=== PATIENT | female | born 1985 | race Caucasian/White ===

== ENCOUNTER 2017-03-18 20:37 | Emergency (ER) | payer BC ==
[~2017-03-18] VITALS: Ht 160 cm; Wt 62.7 kg
[2017-03-18] MEDS ORDERED: ALUMINUM/MAGNESIUM SUSP 30 ML UDC PO STA (20:54)
[2017-03-18] MEDS ORDERED: PANTOprazole SOD 40 MG TAB PO STA (20:54)
--- NOTE | 2017-03-18 21:10 | DIAGNOSTIC IMAGING REPORT ---
CHEST ONE VIEW PORTABLE CLINICAL HISTORY: 31 years-old Female presenting with EVALUATE RESPIRATORY DISTRESS.DYSPNEA. TECHNIQUE: Portable upright AP view of the chest was obtained. COMPARISON: None. FINDINGS: Cardiomediastinal silhouette normal. Lungs and pleural spaces clear. Osseous structures and upper abdomen normal. IMPRESSION: 1. No acute cardiopulmonary disease. Electronically signed by: Donte Walker M.D. 03/18/2017 9:09 PM Dictated Date/Time: 03/18/2017 9:09 PM
[2017-03-18 21:17] LABS: BASO % 0.6 %; BASO ABS # 0.03 K/uL (0-0.2); COMPLETE YES; EOS % 2.8 %; IG% 0.2 %; LYMPH % 13.4 %; LYMPH ABS # 0.71 K/uL (1.2-3.4); MEAN CELL VOLUME 84.6 fL (80-100); MEAN CORPUSCULAR HEMOGLOBIN 30.6 pg (25-34); MEAN CORPUSCULAR HGB CONC 36.2 g/dl (32-36); MEAN PLATELET VOLUME 10.1 fL (7.4-10.4); MONO % 9.8 %; NEUT % 73.2 %; PLATELET COUNT 265 K/uL (130-400); RED BLOOD COUNT 4.61 M/uL (4.2-5.4); WHITE BLOOD COUNT 5.28 K/uL (4.8-10.8)
[2017-03-18 21:29] VITALS: TEMP 37.2; Ht 160 cm; Wt 62.7 kg
[2017-03-18] MEDS ORDERED: OPTIRAY 320 IV PRN (21:30)
[2017-03-18 21:35] LABS: INR 1.2 (0.9-1.1); PARTIAL THROMBOPLASTIN RATIO 1.2; PROTHROMBIN TIME (PATIENT) 12.4 SECONDS (9.0-12.0)
[2017-03-18 21:37] LABS: BLOOD UREA NITROGEN 8 mg/dl (7-18); CREATININE 0.85 mg/dl (0.60-1.20); GLUCOSE 90 mg/dl (70-99)
[2017-03-18 21:38] LABS: ALT/SGPT 30 U/L (12-78); BUN/CREATININE RATIO 8.9 (10-20); CALCIUM 8.9 mg/dl (8.5-10.1); CARBON DIOXIDE 24 mmol/L (21-32); CHLORIDE 105 mmol/L (98-107); POTASSIUM 2.6 mmol/L (3.5-5.1); SODIUM 138 mmol/L (136-145)
[2017-03-18] MEDS ORDERED: POTASSIUM CHLORIDE 10 MEQ / 100ML WTR IV STA (21:40)
[2017-03-18] MEDS ORDERED: POTASSIUM CHLORIDE 10 MEQ TABCR PO STA (21:40)
[2017-03-18 21:42] LABS: ALB/GLOB RATIO 1.1 (0.9-2); ALKALINE PHOSPHATASE 51 U/L (45-117); AST/SGOT 25 U/L (15-37)
[2017-03-18 21:54] LABS: PREG INTERNAL NEGATIVE QC NEG CLEAR BACKGROUND; PREG INTERNAL POSITIVE QC POS CONTROL LINE
[2017-03-18 22:05] LABS: URINE APPEARANCE CLEAR (CLEAR); URINE BILIRUBIN NEG (NEG); URINE COLOR YELLOW; URINE EPITHELIAL CELL AUTO >30 /lpf (0-5); URINE NITRITE NEG (NEG); URINE SPECIFIC GRAVITY 1.005 (1.000-1.030); UROBILINOGEN NEG (NEG)
[2017-03-18 22:23] LABS: MANUAL MICROSCOPIC REQUIRED? NO; REVIEW REQ? NO
--- NOTE | 2017-03-18 22:38 | DIAGNOSTIC IMAGING REPORT ---
(CHEST FOR PE) ANGIO WITH CLINICAL HISTORY: 31 years-old Female presenting with possible pulmonary embolus, chest pain. TECHNIQUE: Multidetector CT angiography of the chest was performed after administration of intravenous contrast. 3-D volumetric and maximum intensity projection (MIP) images were subsequently reconstructed for review. IV contrast: 87 mL of Optiray 320. A dose lowering technique was used consistent with the principles of ALARA (as low as reasonably achievable). COMPARISON: None. CT DOSE (mGy.cm): The estimated cumulative dose is 190.74 mGy.cm. FINDINGS: Equine Pharmacology Technician topogram: Unremarkable. Pulmonary vasculature: The study is adequate for assessment of the pulmonary vascular tree. No filling defect within the pulmonary arteries to suggest embolus. Main pulmonary artery not enlarged. No flattening of the interventricular septum. No intracardiac filling defect. Remaining chest: On soft tissue windows, normal thyroid and thoracic inlet. No axillary, supraclavicular, hilar, or mediastinal lymphadenopathy. Normal aorta. Normal heart size. No pericardial or pleural effusion. Upper abdomen normal. On lung windows, calcified granuloma noted in the left upper lobe. Otherwise no focal infiltrate. Airways patent. On bone windows, normal osseous structures. IMPRESSION: 1. No evidence of pulmonary embolus or acute intrathoracic pathology. Electronically signed by: Donte Walker M.D. 03/18/2017 10:36 PM Dictated Date/Time: 03/18/2017 10:30 PM
[2017-03-18] MEDS ORDERED: OMEP40CA41 PO (22:42)
--- NOTE | 2017-03-18 22:53 | EMERGENCY ROOM VISIT NOTE ---
History Report prepared by Susy: Fabio Tony Under the Supervision of: Dr. Issa Wong D.O. First contact with patient: 20:48 Chief Complaint: CHEST PAIN Stated Complaint: CHEST PAIN History of Present Illness The patient is a 31 year old female who presents to the Emergency Room with complaints of intermittent chest pain beginning yesterday. She was seen at [facility] just prior to arrival and was referred to the ED with concern of PE. She had an episode of pain yesterday, and one episode today that resolved shortly prior to arrival with aspirin. The patient states that she has had similar pain a few times in her life. She states that it has been months to years since her most previous episodes. She also complains of nausea, weakness, and body aches yesterday. The patient denies any leg swelling, or SOB. She is not on control. She is not sure if she is . The patient denies any recent travel. She notes that her previous chest pain occurred while she was highly stressed, but does not currently feel stressed. Source of History: patient Onset: Yesterday Position: chest Timing: intermittent Modifying Factors (Relieving): other (aspirin) Associated Symptoms: + nausea, + weakness, No SOB Note: The patient also complains of body aches occurring yesterday. She denies any leg swelling. Review of Systems See HPI for pertinent positives & negatives. A total of 10 systems reviewed and were otherwise negative. Past Medical & Surgical Medical Problems: (1) No Known Active Medical Problems Family History No pertinent family history stated. Social History Housing Status: lives with significant other Current/Historical Medications Scheduled Omeprazole (Prilosec), 40 MG PO DAILY Allergies Coded Allergies: Amoxicillin (Unverified Allergy, Unknown, RASH, 03/18/17) Penicillins (Unverified Allergy, Unknown, RASH, 03/18/17) Physical Exam Vital Signs Date Time Temp Pulse Resp B/P (MAP) Pulse Ox O2 Delivery O2 Flow Rate FiO2 03/18/17 23:42 75 100 03/18/17 23:35 100/64 03/18/17 23:27 79 99 03/18/17 22:12 93 18 100 03/18/17 22:07 84 18 100 03/18/17 22:04 94/69 03/18/17 21:52 79 23 99 03/18/17 21:37 86 16 03/18/17 21:31 102/77 03/18/17 21:29 Room Air 03/18/17 21:29 37.2 03/18/17 21:25 99/70 03/18/17 21:22 86 26 03/18/17 21:07 81 26 03/18/17 21:07 90 Physical Exam GENERAL: Patient is awake, alert, and in no acute distress. Patient is resting comfortably and showing no signs of anxiety EYES: The conjunctivae are clear. The pupils are round and reactive. EARS, NOSE, MOUTH AND THROAT: The nose is without any evidence of any deformity. Mucous membranes are moist tongue is midline NECK: The neck is nontender and supple. RESPIRATORY: Normal respiratory effort is noted there is no evidence of wheezing rhonchi or rales CARDIOVASCULAR: Regular rate and rhythm noted there no murmurs rubs or gallops normal S1 normal S2 GASTROINTESTINAL: The abdomen is soft. Bowel sounds are present in all quadrants. Abdomen is nontender MUSCULOSKELETAL/EXTREMITIES: There is no evidence of gross deformity full range of motion is noted in the hips and shoulders SKIN: There is no obvious evidence of any rash. There are no petechiae, pallor or cyanosis noted. NEUROLOGIC: Patient is awake alert and oriented x3 strength is symmetric patellar reflexes are 2+ bilaterally Medical Decision & Procedures ER Provider Diagnostic Interpretation: Radiology results as stated below per my review and radiologist interpretation: CHEST ONE VIEW PORTABLE FINDINGS: Cardiomediastinal silhouette normal. Lungs and pleural spaces clear. Osseous structures and upper abdomen normal. IMPRESSION: 1. No acute cardiopulmonary disease. Electronically signed by: Donte Walker M.D. CHEST FOR PE) ANGIO WITH FINDINGS: Construction Superintendent topogram: Unremarkable. Pulmonary vasculature: The study is adequate for assessment of the pulmonary vascular tree. No filling defect within the pulmonary arteries to suggest embolus. Main pulmonary artery not enlarged. No flattening of the interventricular septum. No intracardiac filling defect. Remaining chest: On soft tissue windows, normal thyroid and thoracic inlet. No axillary, supraclavicular, hilar, or mediastinal lymphadenopathy. Normal aorta. Normal heart size. No pericardial or pleural effusion. Upper abdomen normal. On lung windows, calcified granuloma noted in the left upper lobe. Otherwise no focal infiltrate. Airways patent. On bone windows, normal osseous structures. IMPRESSION: 1. No evidence of pulmonary embolus or acute intrathoracic pathology. Electronically signed by: Donte Walker M.D. Laboratory Results 03/18/17 20:39 Red Blood Count 4.61, Mean Corpuscular Volume 84.6, Mean Corpuscular Hemoglobin 30.6, Mean Corpuscular Hemoglobin Concent 36.2, Mean Platelet Volume 10.1, Neutrophils (%) (Auto) 73.2, Lymphocytes (%) (Auto) 13.4, Monocytes (%) (Auto) 9.8, Eosinophils (%) (Auto) 2.8, Basophils (%) (Auto) 0.6, Neutrophils # (Auto) 3.86, Lymphocytes # (Auto) 0.71, Monocytes # (Auto) 0.52, Eosinophils # (Auto) 0.15, Basophils # (Auto) 0.03 03/18/17 20:39 Test 03/18/17 20:39 03/18/17 21:02 03/18/17 21:35 White Blood Count 5.28 K/uL (4.8-10.8) Red Blood Count 4.61 M/uL (4.2-5.4) Hemoglobin 14.1 g/dL (12.0-16.0) Hematocrit 39.0 % (37-47) Mean Corpuscular Volume 84.6 fL (80-100) Mean Corpuscular Hemoglobin 30.6 pg (25-34) Mean Corpuscular Hemoglobin Concent 36.2 g/dl (32-36) Platelet Count 265 K/uL (130-400) Mean Platelet Volume 10.1 fL (7.4-10.4) Neutrophils (%) (Auto) 73.2 % Lymphocytes (%) (Auto) 13.4 % Monocytes (%) (Auto) 9.8 % Eosinophils (%) (Auto) 2.8 % Basophils (%) (Auto) 0.6 % Neutrophils # (Auto) 3.86 K/uL (1.4-6.5) Lymphocytes # (Auto) 0.71 K/uL (1.2-3.4) Monocytes # (Auto) 0.52 K/uL (0.11-0.59) Eosinophils # (Auto) 0.15 K/uL (0-0.5) Basophils # (Auto) 0.03 K/uL (0-0.2) RDW Standard Deviation 37.5 fL (36.4-46.3) RDW Coefficient of Variation 12.2 % (11.5-14.5) Immature Granulocyte % (Auto) 0.2 % Immature Granulocyte # (Auto) 0.01 K/uL (0.00-0.02) Prothrombin Time 12.4 SECONDS (9.0-12.0) Prothromb Time International Ratio 1.2 (0.9-1.1) Activated Partial Thromboplast Time 31.5 SECONDS (21.0-31.0) Partial Thromboplastin Ratio 1.2 Anion Gap 9.0 mmol/L (3-11) Est Creatinine Clear Calc Drug Dose 79.3 ml/min Estimated GFR () 105.8 Estimated GFR (Non- 91.3 BUN/Creatinine Ratio 8.9 (10-20) Calcium Level 8.9 mg/dl (8.5-10.1) Total Bilirubin 1.1 mg/dl (0.2-1) Aspartate Amino Transf (AST/SGOT) 25 U/L (15-37) Alanine Aminotransferase (ALT/SGPT) 30 U/L (12-78) Alkaline Phosphatase 51 U/L (45-117) Troponin I < 0.015 ng/ml (0-0.045) Total Protein 7.0 gm/dl (6.4-8.2) Albumin 3.7 gm/dl (3.4-5.0) Globulin 3.3 gm/dl (2.5-4.0) Albumin/Globulin Ratio 1.1 (0.9-2) Human Chorionic Gonadotropin, Qual NEG (NEG) Bedside D-Dimer > 450 ng/mlFEU (0-450) Urine Color YELLOW Urine Appearance CLEAR (CLEAR) Urine pH 8.0 (4.5-7.5) Urine Specific [place] 1.005 (1.000-1.030) Urine Protein NEG (NEG) Urine Glucose (UA) NEG (NEG) Urine Ketones NEG (NEG) Urine Occult Blood NEG (NEG) Urine Nitrite NEG (NEG) Urine Bilirubin NEG (NEG) Urine Urobilinogen NEG (NEG) Urine Leukocyte Esterase TRACE (NEG) Urine WBC (Auto) 1-5 /hpf (0-5) Urine RBC (Auto) 0-4 /hpf (0-4) Urine Hyaline Casts (Auto) 0 /lpf (0-5) Urine Epithelial Cells (Auto) >30 /lpf (0-5) Urine Bacteria (Auto) NEG (NEG) Laboratory results per my review. Medications Administered Medications (Trade) Dose Ordered Sig/Yoni Route Start Time Stop Time Status Last Admin Dose Admin Al Hydroxide/Mg Hydroxide (Maalox Susp) 30 ml NOW STAT PO 03/18/17 20:54 03/18/17 20:56 DC 03/18/17 21:26 30 ML Pantoprazole Sodium (Protonix Tab) 40 mg NOW STAT PO 03/18/17 20:54 03/18/17 20:56 DC 03/18/17 21:26 40 MG Potassium Chloride (Kcl 10 Meq / Wtr) 10 meq NOW STAT IV 03/18/17 21:40 03/18/17 21:41 DC 03/18/17 22:05 10 MEQ Potassium Chloride (Klor-Con M10) 20 meq NOW STAT PO 03/18/17 21:40 03/18/17 21:41 DC 03/18/17 22:05 20 MEQ ECG Indication: chest pain Rate (beats per minute): 81 Rhythm: normal sinus Findings: no acute ischemic change, no ectopy Comparison ECG Date: Earlier today Change: no significant change ED Course 2049: The patient was evaluated in room A11B. A complete history and physical examination were performed. 2053: Ordered Protonix Tab 40 mg PO, Maalox Susp 30 mL PO. 2139: Ordered Klor-Con M10 20 meq PO, KCl 10 Meq / Wtr 10 meq IV. 2244: Upon reevaluation, the patient is resting comfortably. I discussed the results and treatment plan with her. She verbalized agreement of the treatment plan. The patient was discharged home. Medical Decision Differential diagnosis: Etiologies such as cardiac ischemia, aortic dissection, pulmonary embolism, pneumonia, pneumothorax, musculoskeletal, infections, pericarditis, myocarditis , esophageal rupture, gastrointestinal, as well as others were entertained. Nursing notes reviewed. The patient is a 31-year-old female who presented to the emergency department for an evaluation of chest pain. The patient has had ongoing intermittent chest pain for the last few days. Initially she presented to the [facility] was sent to the emergency department for further evaluation. The patient had an EKG that was not consistent with an acute coronary syndrome. Her cardiac biomarkers were negative. Her d-dimer is elevated and she was sent to the emergency department specifically for the possibility of PE. This reason CT the chest was obtained and did not reveal any signs of acute venous thromboembolic disease. I discussed the patient's laboratory and radiographic studies with her. She was encouraged to rest and avoid any strenuous activity. She was also encouraged to follow-up with her primary care physician soon as possible. Otherwise she was encouraged to return to the emergency department immediately if symptoms change worsen or the need arises. Impression Primary Impression: Chest pain Additional Impressions: Gastroesophageal reflux Hypokalemia Scribe Attestation The scribe's documentation has been prepared under my direction and personally reviewed by me in its entirety. I confirm that the note above accurately reflects all work, treatment, procedures, and medical decision making performed by me. Departure Information Dispostion Home / Self-Care Prescriptions Omeprazole (PRILOSEC) 40 Mg Cap 40 MG PO DAILY, #30 CAP Prov: Issa Wong, DO 03/18/17 Forms HOME CARE DOCUMENTATION FORM, IMPORTANT VISIT INFORMATION Patient Instructions ED Chest Pain Atypical Unkn Cause, My [facility] Additional Instructions Call your family to schedule appointment. Drink plenty clear liquids. Continue using Tylenol as directed for pain. Try using Maalox or Mylanta as directed for symptomatic relief. Problem Qualifiers Primary Impression: Chest pain Chest pain type: unspecified Qualified Codes: R07.9 - Chest pain, unspecified Additional Impressions: Gastroesophageal reflux Esophagitis presence: esophagitis presence not specified Qualified Codes: K21.9 - Gastro-esophageal reflux disease without esophagitis
[2017-03-18 23:35] VITALS: BP 100/64
[2017-03-18 23:42] VITALS: PULSE 75; O2SAT 100
== END 2017-03-18 23:44 | disposition home or self-care (01) ==
LOC: C.EDA 20:39
DX: R07.9 Chest pain, unspecified (principal); K21.9 Gastro-esophageal reflux disease without esophagitis; E87.6 Hypokalemia; Z79.899 Other long term (current) drug therapy